=== PATIENT | male | born 1945 | race Caucasian/White ===

== ENCOUNTER 2018-08-14 17:18 | Emergency (ER) | END 2018-08-14 20:40 | disposition home or self-care (01) ==

== ENCOUNTER 2019-01-24 12:34 | Emergency (ER) | payer MEDICARE, OTHER ==
[~2019-01-24] VITALS: Ht 170.2 cm; Wt 78.0 kg
[~2019-01-24 12:34] MED LIST: LEVO50TA7 PO; MELO15TA30 PO; METO-335 PO; OXYC30TA PO; PANT40TA4 PO; RIVA20TA5 PO; RSV10T PO; TAMS0.4C2 PO
[2019-01-24 12:39] VITALS: Ht 170.2 cm; Wt 78.0 kg
[2019-01-24 16:32] VITALS: BP 135/74; PULSE 83; RESP 20
--- NOTE | 2019-01-24 16:36 | ERD ---
ER Documentation Chief Complaint Chief Complaint pt is bib self with c/o bilatt arms "feeling cold" poor circulation 20 days HPI 74-year-old male presents with complaint of left arm pain x20 days. Notes pain has come and gone over the past 20 days, increasing in severity over the past 2 days. Denies injury or trauma to the region. Denies loss of range of motion, numbness or tingling to the extremity. She expresses concern due to recent blepharoplasty 5 days ago for which she had to stop his Xarelto. Patient notes to have restarted Xarelto 2 days ago. Pt states to take xarelto for an unknown cardiac issue and because is a smoker, states cardiac issues is a "30-40% block in coronary." Pt denies any other medical conditions other than xarelto. Pt rates his current pain as 2/10. No SOB, no chest pain, no dizziness, no di aphoresis. ROS All systems reviewed and are negative except as per history of present illness. Medications Home Meds Reported Medications Rosuvastatin Calcium* (Crestor*) 10 Mg Tablet, 10 MG PO QHS, #30 TAB 08/14/18 Tamsulosin Hcl* (Tamsulosin Hcl*) 0.4 Mg Cap.er.24h, 0.4 MG PO HS PRN for NEEDED, CAP 08/14/18 Metoprolol Succinate* (Toprol XL*) 25 Mg Tab.sr.24h, 25 MG PO DAILY, #30 TAB 08/14/18 Pantoprazole* (Pantoprazole*) 40 Mg Tablet.dr, 40 MG PO AC BREAKFAST, TAB 08/14/18 Oxycodone Hcl* (IR) (Oxycodone Hcl*) 30 Mg Tablet, 30 MG PO QID PRN for PAIN, TAB 08/14/18 Rivaroxaban* (Xarelto*) 20 Mg Tablet, 20 MG PO WITH DINNER, TAB 08/14/18 Meloxicam* (Mobic*) 15 Mg Tablet, 15 MG PO DAILY, #30 TAB 08/14/18 Levothyroxine Sodium* (Levothyroxine Sodium*) 50 Mcg Tablet, 50 MCG PO BEFORE BREAKFAST, #30 TAB 08/14/18 Allergies Allergies: Coded Allergies: No Known Allergy (Unverified , 08/14/18) PMhx/Soc History of Surgery: Yes (STENT PLACEMENT) Anesthesia Reaction: No Hx Neurological Disorder: No Hx Respiratory Disorders: No Hx Cardiac Disorders: Yes (Hyperlipidemia, Hypertension, CAD, SVT) Hx Psychiatric Problems: Yes (Anxiety) Hx Miscellaneous Medical Probl: Yes (chronic back pain) Hx Alcohol Use: No Hx Substance Use: No Hx Tobacco Use: No Smoking Status: Current some day smoker Physical Exam Vitals Vital Signs Date Temp Pulse Resp B/P (MAP) Pulse Ox O2 O2 Flow FiO2 Time Delivery Rate 01/24/19 98.3 85 18 148/80 98 12:39 (102) Physical Exam GENERAL: Alert and coherent. Well appearing, non-toxic. No acute distress. HEAD: Normocephalic, atraumatic. EYES: EOMI. PERRL. No conjunctival injection. No scleral icterus. No Discharge. Visible ecchymosis to the bilateral orbits from previous surgery. ENT: Nasal passages patent. Moist mucous membranes. No erythema or tonsillar exudates. NECK: Supple. Full range of motion. Trachea midline. No lymphadenopathy. RESPIRATORY: No tachypnea. Clear to auscultation bilaterally. No wheezing, rales or rhonchi. No accessory muscle use. CV: Regular rate and rhythm. No murmurs, rubs, or gallops. ABDOMEN: Soft, non-distended, non-tender. No guarding. No rebound tenderness or rigidity. No masses. Positive bowel sounds in all four quadrants. BACK: Full ROM. No CVA tenderness. EXTREMITIES: No deformity. No clubbing, cyanosis or edema. Equal pulses x 4. Full range of motion of the left upper extremity. Station intact. No pain to palpation of the upper extremities bilaterally. No visible erythema, edema, warmth. SKIN: Warm and dry. No obvious rashes, erythema, or petechiae. NEUROLOGIC: Alert and oriented x3. Appropriate speech, mood and affect. Face is symmetric. Speech is normal. CN II-XII intact. Moves all extremities equally. Ambulates with a strong, steady gait. Result Diagram: 01/24/19 1519 01/24/19 1519 Results 24 hrs Laboratory Tests Test 01/24/19 15:19 White Blood Count 7.6 10^3/ul Red Blood Count 4.82 10^6/ul Hemoglobin 14.2 g/dl Hematocrit 42.2 % Mean Corpuscular Volume 87.6 fl Mean Corpuscular Hemoglobin 29.5 pg Mean Corpuscular Hemoglobin Concent 33.6 g/dl Red Cell Distribution Width 13.4 % Platelet Count 249 10^3/UL Mean Platelet Volume 9.7 fl Immature Granulocytes % 0.300 % Neutrophils % 48.1 % Lymphocytes % 40.4 % Monocytes % 9.2 % Eosinophils % 1.6 % Basophils % 0.4 % Nucleated Red Blood Cells % 0.0 /100WBC Immature Granulocytes # 0.020 10^3/ul Neutrophils # 3.7 10^3/ul Lymphocytes # 3.1 10^3/ul Monocytes # 0.7 10^3/ul Eosinophils # 0.1 10^3/ul Basophils # 0.0 10^3/ul Nucleated Red Blood Cells # 0.0 10^3/ul Prothrombin Time 20.4 Sec Prothrombin Time Ratio 1.6 INR International Normalized Ratio 1.74 Activated Partial Thromboplast Time 35.9 Sec Thrombin Time 16.5 SEC Sodium Level 139 mmol/L Potassium Level 4.5 mmol/L Chloride Level 102 mmol/L Carbon Dioxide Level 28 mmol/L Anion Gap 9 Blood Urea Nitrogen 27 mg/dl Creatinine 1.10 mg/dl Est Glomerular Filtrat Rate mL/min mL/min Glucose Level 84 mg/dl Calcium Level 9.5 mg/dl Troponin I < 0.012 ng/ml Procedures/MDM EKG: NSR, Rightward axis. Rate 77. EKG signed by attending dr. Bermudez. PROCEDURE: XR Chest. CLINICAL INDICATION: chest pain TECHNIQUE: Single frontal view of the chest was obtained COMPARISON: CHEST 08/14/2018 FINDINGS: The costophrenic angles were not completely included. There is mild biapical scarring. The heart and mediastinum are within normal limits. There is no focal infiltrate. There is no pleural effusion or pneumothorax. IMPRESSION: No acute disease. Mild biapical scarring. MDM: 74 yo M pt presents with complaint of Left arm pain. VS noted. Patient is well-appearing / non-toxic. Given pt positive smoking history and cardiac history, cardiac panel performed. EKG NSR with no ST changes and Troponin negative. Given unremarkable exam, labs, ekg and imaging there is low suspicion for cardiac abnormality at this time. Low suspicion for ACS, dissection, PE, PTX or pneumonia. Patient was observed in ED and frequently reassessed. Etiology of pain is unclear. This could be musculoskeletal, costochondritis, other and patient was advised to f/u with PCP and/or water operator within the next 2-3 days. Patient will be discharged home as at this time no acute emergent findings. Patient will be d/c home and is told to return to ED for worsening pain, dyspnea, and other concerns. Patient expressed verbal understanding and agreement to treatment plan. All questions addressed and answered. Departure Diagnosis: Primary Impression: Pain of left arm Condition: Good Patient Instructions: Stroke Prevention: Using Blood Thinners (Anticoagulants), Muscle Strain, Extremity Additional Instructions: He was seen today for left arm pain. Labs and imaging as well as EKG were performed to rule out cardiopulmonary abnormality. Labs EKG and imaging do not indicate a cardio pulmonary abnormality at this time. However it is recommended that you follow-up with your PCP and/or water operator within the next few days. Return to the ED if you start to develop new or worsening left arm or chest pain, shortness of breath, or other new or worsening symptoms. MARISOL PALACIO PA-C January 24, 2019 16:31
== END 2019-01-24 16:33 | disposition home or self-care (01) ==
LOC: FTE 12:34
DX: M79.602 Pain in left arm (principal); I10 Essential (primary) hypertension; I25.10 Atherosclerotic heart disease of native coronary artery without angina pectoris; F17.210 Nicotine dependence, cigarettes, uncomplicated; Z98.61 Coronary angioplasty status
CPT/HCPCS: 36415; 71045; 80048; 84484; 85025; 85049; 85610; 85670; 85730; 93005

== ENCOUNTER 2019-05-16 16:34 | Emergency (ER) | payer MEDICARE, OTHER ==
[~2019-05-16] VITALS: Ht 167.6 cm; Wt 80.0 kg
[2019-05-16 16:36] VITALS: BP 157/82; PULSE 90; RESP 24; Ht 167.6 cm; Wt 80.0 kg
== END 2019-05-16 18:58 | disposition left against medical advice (07) ==
LOC: E/R 16:34
DX: Z53.21 Procedure and treatment not carried out due to patient leaving prior to being seen by health care provider (principal)
CPT/HCPCS: 93005

== ENCOUNTER 2019-05-16 22:32 | Emergency (ER) | payer MEDICARE, OTHER ==
[~2019-05-16] VITALS: Ht 175.3 cm; Wt 75.0 kg
[2019-05-16 22:33] VITALS: Ht 175.3 cm; Wt 75.0 kg
[2019-05-17 00:40] VITALS: BP 170/83; PULSE 92; RESP 22
== END 2019-05-17 00:41 | disposition home or self-care (01) ==
LOC: FTE 22:32
DX: T18.9XXA Foreign body of alimentary tract, part unspecified, initial encounter (principal); I25.10 Atherosclerotic heart disease of native coronary artery without angina pectoris; X58.XXXA Exposure to other specified factors, initial encounter; Y92.9 Unspecified place or not applicable; Z98.61 Coronary angioplasty status
CPT/HCPCS: 80307; 99283